=== PATIENT | male | born 1990 | race Two or more races ===

== ENCOUNTER 2025-06-21 07:38 | Inpatient (IN) | payer OTHER ==
[2025-06-21] MEDS ORDERED: Ketorolac Tromethamine 30 MG (1 mL) VIAL ONE ×2 (09:02→09:05)
[2025-06-21 09:26] LABS: #Basophils 0.05 10x3/uL (0.0-0.2); #Eosinophils 0.15 10x3/uL (0.0-0.5); #Monocytes 0.87 10x3/uL (0.0-1.1); #Neutrophils 9.76 10x3/uL (1.5-8.4); %Basophils 0.4 % (0.0-2.0); %Eosinophils 1.1 % (0.0-6.0); %Lymphocytes 17.1 % (18.0-47.0); %Monocytes 6.6 % (0.0-10.0); %Neutrophils 74.3 % (40.0-75.0); Hematocrit 47.3 % (38.8-50.0); Hemoglobin 15.4 g/dL (13.5-17.5); Mean Corpuscular Hemoglobin 28.1 pg (27.0-33.0); Mean Corpuscular Volume 86.2 fL (81.2-95.1); Platelet Count 273 10x3/uL (150-450); Red Blood Cell (RBC) Count 5.49 10x6/uL (4.32-5.72); White Blood Cell (WBC) Count 13.14 10x3/uL (3.5-10.5)
[2025-06-21 09:51] LABS: Troponin I 2.421 ng/mL (< 0.028)
[2025-06-21 09:55] LABS: ALT (SGPT) 22 U/L (Less than 45); AST (SGOT) 31 U/L (11-34); Albumin 3.1 g/dL (3.1-4.5); Alkaline Phosphatase 136 U/L (40-110); Anion Gap 16 mmol/L (10-20); BUN (Urea Nitrogen) 19 mg/dL (8.9-20.6); Bilirubin, Total 1.0 mg/dL (0.3-1.2); Calc. Creatinine Clearance 0 mL/min (70-130); Calcium 8.5 mg/dL (7.8-10.44); Carbon Dioxide 24 mmol/L (22-29); Chloride 103 mmol/L (98-107); Globulin 2.9 g/dL (2.4-3.5); Glucose 117 mg/dL (70-105); Lipase 14 U/L (8-78); Magnesium 1.7 mg/dL (1.6-2.6); Potassium 3.5 mmol/L (3.5-5.1); Sodium 139 mmol/L (136-145)
[2025-06-21] MEDS ORDERED: Aspirin Chewable 81 MG TAB ONE (10:26)
[2025-06-21 10:52] LABS: Acetaminophen Less than 10 mcg/mL (Less than 10); Salicylate Less than 8.0 mg/dL (Less than 8.0)
[2025-06-21 10:54] LABS: Cocaine Metabolite Screen Negative (Negative); THC/Cannabinoid Screen PRELIM POSITIVE (Negative); Tricyclic Screen PRELIM POSITIVE (Negative)
[2025-06-21] MEDS ORDERED: Furosemide 40 MG (4 mL) VIAL ONE (11:01)
[2025-06-21 13:30] VITALS: BMI 24.7
[2025-06-21] MEDS ORDERED: Iopamidol 370 76% 100 ML VIAL ONE (13:44)
[2025-06-21] MEDS ORDERED: Ondansetron PF 4 MG/2 ML Vial IVP PRN (14:55)
[2025-06-21 15:59] LABS: Troponin I 2.092 ng/mL (< 0.028)
[2025-06-21] MEDS: VANCOMYCIN 2 GRAM/400 ML BAG 2 GM in Premix 1 BAG IVPB SCH (16:40)
[2025-06-21 19:04] LABS: Troponin I 1.952 ng/mL (< 0.028)
[2025-06-21] MEDS: Carvedilol 3.125 MG TAB PO SCH (20:27)
[2025-06-21] MEDS: Apixaban 5 MG TAB PO SCH (20:27)
[2025-06-21] MEDS: Famotidine 20 MG TAB PO SCH (20:27)
[2025-06-21] MEDS: Vancomycin HCl 750 MG in Sodium Chloride 0.9% 250 ML 250 ML IVPB SCH (22:13)
[2025-06-22 04:08] LABS: #Basophils 0.08 10x3/uL (0.0-0.2); #Eosinophils 0.27 10x3/uL (0.0-0.5); #Monocytes 0.73 10x3/uL (0.0-1.1); #Neutrophils 9.53 10x3/uL (1.5-8.4); %Basophils 0.6 % (0.0-2.0); %Eosinophils 2.0 % (0.0-6.0); %Lymphocytes 22.3 % (18.0-47.0); %Monocytes 5.3 % (0.0-10.0); %Neutrophils 69.4 % (40.0-75.0); Hematocrit 47.0 % (38.8-50.0); Hemoglobin 15.5 g/dL (13.5-17.5); Mean Corpuscular Hemoglobin 28.4 pg (27.0-33.0); Mean Corpuscular Volume 86.1 fL (81.2-95.1); Platelet Count 306 10x3/uL (150-450); Red Blood Cell (RBC) Count 5.46 10x6/uL (4.32-5.72); White Blood Cell (WBC) Count 13.72 10x3/uL (3.5-10.5)
[2025-06-22 04:17] LABS: Vancomycin, Random 32.2 ug/mL (See Comment)
[2025-06-22 04:25] LABS: ALT (SGPT) 17 U/L (Less than 45); AST (SGOT) 25 U/L (11-34); Albumin 3.1 g/dL (3.1-4.5); Alkaline Phosphatase 134 U/L (40-110); Anion Gap 14 mmol/L (10-20); BUN (Urea Nitrogen) 23 mg/dL (8.9-20.6); Bilirubin, Total 0.5 mg/dL (0.3-1.2); Calc. Creatinine Clearance 97 mL/min (70-130); Calcium 8.5 mg/dL (7.8-10.44); Carbon Dioxide 26 mmol/L (22-29); Cardiac Risk 3.1 (Less than 4.5); Chloride 103 mmol/L (98-107); Cholesterol 144 mg/dl (< 200 Desired); Globulin 3.3 g/dL (2.4-3.5); Glucose 105 mg/dL (70-105); HDL Cholesterol 47 mg/dL (>60 Neg Risk); LDL Cholesterol, Calculated 83 mg/dL; Potassium 3.8 mmol/L (3.5-5.1); Sodium 139 mmol/L (136-145); Triglycerides 69 mg/dL (Less than 150)
[2025-06-22] MEDS: Dapagliflozin Propanediol 10 MG TAB PO SCH (08:05)
[2025-06-22] MEDS: QUEtiapine 100 MG TAB PO SCH (08:05)
[2025-06-22] MEDS: Aspirin 81 mg Enteric Coated Tablet PO SCH (08:06)
[2025-06-22] MEDS: Spironolactone 25 MG TAB PO SCH (08:07)
[2025-06-22] MEDS: Lisinopril 2.5 MG TAB PO SCH (08:07)
[2025-06-22] MEDS ORDERED: Vancomycin 1 GM in Sodium Chloride 0.9% 250 ML 250 ML IVPB SCH (09:00)
[2025-06-22] MEDS: Carvedilol 12.5 MG TAB PO SCH (09:12)
[2025-06-22] MEDS: Lisinopril 20 MG TAB PO SCH (09:13)
[2025-06-22] MEDS: Vancomycin 1.5 GRAM/300 ML BAG 1.5 GM in Premix 1 BAG IVPB SCH (20:20)
[2025-06-23 04:27] LABS: #Basophils 0.06 10x3/uL (0.0-0.2); #Eosinophils 0.17 10x3/uL (0.0-0.5); #Monocytes 0.89 10x3/uL (0.0-1.1); #Neutrophils 10.06 10x3/uL (1.5-8.4); %Basophils 0.4 % (0.0-2.0); %Eosinophils 1.2 % (0.0-6.0); %Lymphocytes 22.0 % (18.0-47.0); %Monocytes 6.2 % (0.0-10.0); %Neutrophils 69.9 % (40.0-75.0); Hematocrit 51.8 % (38.8-50.0); Hemoglobin 17.0 g/dL (13.5-17.5); Mean Corpuscular Hemoglobin 28.5 pg (27.0-33.0); Mean Corpuscular Volume 86.8 fL (81.2-95.1); Platelet Count 335 10x3/uL (150-450); Red Blood Cell (RBC) Count 5.97 10x6/uL (4.32-5.72); White Blood Cell (WBC) Count 14.39 10x3/uL (3.5-10.5)
[2025-06-23 04:40] LABS: Vancomycin, Random 13.8 ug/mL (See Comment)
[2025-06-23 04:42] LABS: Anion Gap 14 mmol/L (10-20); BUN (Urea Nitrogen) 26 mg/dL (8.9-20.6); Calc. Creatinine Clearance 82 mL/min (70-130); Calcium 9.5 mg/dL (7.8-10.44); Carbon Dioxide 27 mmol/L (22-29); Chloride 101 mmol/L (98-107); Glucose 113 mg/dL (70-105); Potassium 5.0 mmol/L (3.5-5.1); Sodium 137 mmol/L (136-145)
[2025-06-23] MEDS: Nitroglycerin 0.4 MG TAB (25 Tab Bottle) SL PRN (07:59)
[2025-06-23] MEDS: Vancomycin HCl 750 MG in Sodium Chloride 0.9% 250 ML 250 ML IVPB SCH (09:05)
[2025-06-23] MEDS: Calcium Carbonate 500 MG ChewTAB PO PRN (09:05)
[2025-06-23] MEDS: QUEtiapine 100 MG TAB PO SCH (21:40)
[2025-06-24 04:24] LABS: #Basophils 0.04 10x3/uL (0.0-0.2); #Eosinophils 0.16 10x3/uL (0.0-0.5); #Monocytes 0.96 10x3/uL (0.0-1.1); #Neutrophils 10.07 10x3/uL (1.5-8.4); %Basophils 0.3 % (0.0-2.0); %Eosinophils 1.1 % (0.0-6.0); %Lymphocytes 22.2 % (18.0-47.0); %Monocytes 6.6 % (0.0-10.0); %Neutrophils 69.4 % (40.0-75.0); Hematocrit 51.9 % (38.8-50.0); Hemoglobin 16.7 g/dL (13.5-17.5); Mean Corpuscular Hemoglobin 27.7 pg (27.0-33.0); Mean Corpuscular Volume 86.1 fL (81.2-95.1); Platelet Count 326 10x3/uL (150-450); Red Blood Cell (RBC) Count 6.03 10x6/uL (4.32-5.72); White Blood Cell (WBC) Count 14.51 10x3/uL (3.5-10.5)
[2025-06-24 04:37] LABS: Anion Gap 15 mmol/L (10-20); BUN (Urea Nitrogen) 31 mg/dL (8.9-20.6); Calc. Creatinine Clearance 92 mL/min (70-130); Calcium 9.5 mg/dL (7.8-10.44); Carbon Dioxide 27 mmol/L (22-29); Chloride 103 mmol/L (98-107); Glucose 113 mg/dL (70-105); Potassium 4.7 mmol/L (3.5-5.1); Sodium 140 mmol/L (136-145)
[2025-06-24] MEDS: Gabapentin 100 MG CAP PO SCH (04:37)
[2025-06-24 04:38] LABS: Vancomycin, Random 19.6 ug/mL (See Comment)
[2025-06-24] MEDS: Acetaminophen 500 MG TAB PO PRN (14:20)
[2025-06-25 04:28] LABS: Vancomycin, Random 17.3 ug/mL (See Comment)
[2025-06-25] MEDS: FLU (Fluarix Triv) 25-26 (6MOS UP)/PF 45 MCG/0.5 ML Syringe IM ONE (08:11)
[2025-06-26 08:51] VITALS: TEMP 97.7
[2025-06-26 12:16] VITALS: BP 145/87
[2025-06-27] MEDS ORDERED: Lisinopril 10 MG TAB PO SCH (09:00)
== END 2025-06-26 12:20 | disposition home or self-care (01) | DRG 602 ==
LOC: CSHERS 07:38 → CSHERHOLD 11:20 → CSHICU 13:28 → CSHTELE 06-22 10:13
PROVIDERS: ADMIT Family Medicine; ATTEND Family Medicine
DX: L03.116 Cellulitis of left lower limb (principal); I21.A1 Myocardial infarction type 2; I42.0 Dilated cardiomyopathy; I50.42 Chronic combined systolic (congestive) and diastolic (congestive) heart failure; I80.3 Phlebitis and thrombophlebitis of lower extremities, unspecified; I87.2 Venous insufficiency (chronic) (peripheral); F19.10 Other psychoactive substance abuse, uncomplicated; N18.2 Chronic kidney disease, stage 2 (mild); F41.9 Anxiety disorder, unspecified; F32.A Depression, unspecified; E78.5 Hyperlipidemia, unspecified; I44.4 Left anterior fascicular block; Z79.01 Long term (current) use of anticoagulants; Z86.718 Personal history of other venous thrombosis and embolism; Z91.148 Patient's other noncompliance with medication regimen for other reason; Z79.899 Other long term (current) drug therapy; Z98.890 Other specified postprocedural states; Z79.84 Long term (current) use of oral hypoglycemic drugs; Z23 Encounter for immunization
CPT/HCPCS: 36415; 71275; 80048; 80053; 80061; 80202; 80306; 80307; 83690; 83735; 83880; 84484; 85025; 93005; 93010; 93306; 94762; 96365; 96375; J0692; J1885; J1940; J2272; J2543; J3373; J3375; J7050; Q9967